=== PATIENT | female | born 1980 | race Caucasian/White ===

== ENCOUNTER 2016-09-08 06:35 | Day surgery (SDC) | payer BC, OTHER ==
[2016-09-08] MEDS ORDERED: Bupivacaine 0.25%/EPINEPHrine 1:200,000 10 ML SDV ONE (06:46)
[2016-09-08] MEDS ORDERED: Acetaminophen/HYDROcodone 325-5 MG Tab PO PRN (07:00)
[2016-09-08] MEDS ORDERED: Clindamycin Phosphate in D5W 600 MG in Premix Bag 1 BAG IV ONE ×2 (07:00)
[2016-09-08] MEDS ORDERED: Lactated Ringers 1,000 ML IV SCH (07:00)
[2016-09-08] MEDS ORDERED: Ondansetron 4 MG/2 ML SDV ONE (07:17)
[2016-09-08] MEDS ORDERED: Lidocaine 2% 5 ML SDV ONE (07:17)
[2016-09-08] MEDS ORDERED: Propofol 200 MG/20 ML SDV ONE (07:17)
[2016-09-08] MEDS ORDERED: Rocuronium 10 MG/ML 10 ML Syringe ONE (07:17)
[2016-09-08] MEDS ORDERED: Neostigmine Methylsulfate 1 MG/ML 5 ML Syringe ONE (07:17)
[2016-09-08] MEDS ORDERED: fentaNYL 250 MCG/5 ML SDV ONE (07:17)
[2016-09-08] MEDS ORDERED: Midazolam 1 MG/ML 2 ML SDV ONE (07:17)
--- NOTE | 2016-09-08 07:52 | PCM.PREANE ---
Preanesthetic Assessment - Anesthesia/Transfusion/Family Hx Anesthesia History: Prior Anesthesia Without Reaction Family History of Anesthesia Reaction: No Transfusion History: No Prior Transfusion(s) - Review of Systems General: No Symptoms Pulmonary: No Symptoms Cardiovascular: No Symptoms Gastrointestinal: No symptoms Neurological: No Symptoms Other: Reports: None - Physical Assessment NPO Status Date: 09/07/16 O2 Sat by Pulse Oximetry: 100 Respiratory Rate: 16 Vital Signs: Last Vital Signs Temp 36.4 C 09/08/16 06:43 Pulse 84 09/08/16 06:43 Resp 16 09/08/16 06:43 BP 145/87 H 09/08/16 06:43 Pulse Ox 100 09/08/16 06:43 Height: 1.6 m Weight: 91.626 kg ASA Class: 2 Mental Status: Alert & Oriented x3 Dentition: Reports: Normal Dentition ROM/Head Extension: Full Lungs: Clear to auscultation, Normal respiratory effort Cardiovascular: Regular Rate, Regular Rhythm - Lab Values: Laboratory Last Values Urine HCG, Qual NEGATIVE (NEGATIVE) 09/08/16 06:40 - Allergies Allergies/Adverse Reactions: Allergies Allergy/AdvReac Type Severity Reaction Status Date / Time Penicillins Allergy Cannot Verified 06/19/15 10:47 Remember - Anesthesia Plan Pre-Op Medication Ordered: None - Acknowledgements Anesthesia Type Planned: General Anesthesia Pt an Appropriate Candidate for the Planned Anesthesia: Yes Alternatives and Risks of Anesthesia Discussed w Pt/Guardian: Yes Pt/Guardian Understands and Agrees with Anesthesia Plan: Yes PreAnesthesia Questionnaire HEENT History: Reports: None Other HEENT History: currently on Z Pac for ear infection Cardiovascular History: Reports: None Respiratory History: Reports: None Gastrointestinal History: Reports: Other (See Below) Other Gastrointestinal History: occasional heartburn Genitourinary History: Reports: None MANAGER WATER History: Reports: Musculoskeletal History: Reports: None Neurological History: Reports: None Psychiatric History: Reports: Anxiety, Depression Endocrine/Metabolic History: Reports: Diabetes, Gestational, Obesity/BMI 30+ Hematologic History: Reports: None Immunologic History: Reports: None Oncologic (Cancer) History: Reports: None Dermatologic History: Reports: Other (See Below) Other Dermatologic History: pt states she "always gets infections in her incisions after surgery" - Past Surgical History Head Surgeries/Procedures: Reports: None GI Surgical History: Reports: Appendectomy Female Surgical History: Reports: Section, D&C Neurological Surgical History: Reports: None Musculoskeletal Surgical History: Reports: Other (See Below) Other Musculoskeletal Surgeries/Procedures:: tumor removed from left foot Oncologic Surgical History: Reports: Other (See Below) Other Oncologic Surgeries/Procedures: 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 - SUBSTANCE USE Smoking Status *Q: Former Smoker Tobacco Use Within Last Twelve Months: Cigarettes Second Hand Smoke Exposure: Yes Recreational Drug Use History: No - HOME MEDS Home Medications: Home Meds Sertraline [Zoloft] 50 mg PO DAILY 06/19/15 [History] - CURRENT (IN HOUSE) MEDS Current Meds: Current Medications Hydrocodone Bitart/Acetaminophen (Carrier 325-5 Mg) 1 tab PO Q4H PRN PRN Reason: Pain Bupivacaine HCl/Epinephrine Bitart (Marcaine 0.25%/Epinephrine 1:200,000) 20 ml INJECT ONETIME ONE Stop: 09/08/16 08:01 Lactated Ringer's (Ringers, Lactated) 1,000 mls @ 125 mls/hr IV ASDIRECTED [facility] Last Admin: 09/08/16 06:49 Dose: 125 mls/hr Discontinued Medications Bupivacaine HCl/Epinephrine Bitart (Marcaine 0.25%/Epinephrine 1:200,000) Confirm Administered Dose 20 ml .ROUTE .STK-MED ONE Stop: 09/08/16 06:47 Fentanyl (Sublimaze) Confirm Administered Dose 250 mcg .ROUTE .STK-MED ONE Stop: 09/08/16 07:18 Glycopyrrolate () Confirm Administered Dose 1 mg .ROUTE .STK-MED ONE Stop: 09/08/16 07:18 Clindamycin Phosphate 600 mg/ (Premix) 50 mls @ 150 mls/hr IV ONETIME ONE Stop: 09/08/16 07:19 Last Admin: 09/08/16 07:49 Dose: 150 mls/hr Lidocaine (Xylocaine-Mpf 2%) Confirm Administered Dose 5 ml .ROUTE .STK-MED ONE Stop: 09/08/16 07:18 Midazolam HCl (Versed 1 Mg/Ml) Confirm Administered Dose 2 mg .ROUTE .STK-MED ONE Stop: 09/08/16 07:18 Neostigmine Methylsulfate (Neostigmine) Confirm Administered Dose 5 mg .ROUTE .STK-MED ONE Stop: 09/08/16 07:18 Ondansetron HCl (Zofran) Confirm Administered Dose 4 mg .ROUTE .STK-MED ONE Stop: 09/08/16 07:18 Propofol (Diprivan 20 Ml) Confirm Administered Dose 200 mg .ROUTE .STK-MED ONE Stop: 09/08/16 07:18 Rocuronium [place] (Zemuron) Confirm Administered Dose 100 mg .ROUTE .STK-MED ONE Stop: 09/08/16 07:18
[2016-09-08] MEDS ORDERED: Bupivacaine 0.25%/EPINEPHrine 1:200,000 10 ML SDV INJECT ONE (08:00)
[2016-09-08] MEDS ORDERED: Phenylephrine/Normal Saline 100 MCG/ML 10 ML Syringe ONE (08:13)
[2016-09-08] MEDS ORDERED: fentaNYL 100 MCG/2 ML SDV IVPUSH PRN (08:20)
[2016-09-08 09:55] VITALS: BP 117/76
--- NOTE | 2016-09-08 09:57 | PCM.POSTAN ---
POST ANESTHESIA ASSESSMENT - MENTAL STATUS Mental Status: alert, oriented - RESPIRATORY Respiratory Status: respiratory rate WNL, airway patent, O2 saturation stable - CARDIOVASCULAR CV Status: pulse rate WNL, blood pressure stable - GASTROINTESTINAL GI Status: no symptoms - POST OP HYDRATION Hydration Status: adequate & stable
--- NOTE | 2016-09-08 09:58 | PCM48HPAN ---
Post Anesthesia Note - EVALUATION WITHIN 48HRS OF ANESTHETIC Vital Signs in Normal Range: Yes Patient Participated in Evaluation: Yes Respiratory Function Stable: Yes Airway Patent: Yes Cardiovascular Function Stable: Yes Hydration Status Stable: Yes Pain Control Satisfactory: Yes Nausea and Vomiting Control Satisfactory: Yes Mental Status Recovered: Yes
--- NOTE | 2016-09-09 16:53 | PCM.OPNOTE ---
- General Post-Op/Procedure Note Date of Surgery/Procedure: 09/08/16 Operative Procedure(s): excision of left back lipoma - submuscular 3 cm. Pre Op Diagnosis: let back lipoma Post-Op Diagnosis: Same Anesthesia Technique: General ET tube, Local Primary Surgeon: Radha You Bridal Stylist Sales Consultant: Tish Arguelles Complications: None Condition: Good Free Text/Narrative:: [id number]
--- NOTE | 2016-09-10 02:29 | OR ---
SURGEON: CANDE SPAULDING MD DATE OF PROCEDURE: 09/08/2016 PREOPERATIVE DIAGNOSIS: Left back lipoma. POSTOPERATIVE DIAGNOSIS: Left back lipoma, submuscular. PROCEDURES: Excision of left submuscular lipoma of the back 3 cm. WOOD TREATING INSPECTOR: CODEY Astudillo. INDICATIONS: Aline is a 36-year-old female with left back lipoma. Risks and benefits of excision were discussed with her and she was in agreement to proceed. Risks were including, but not limited to, bleeding, infection, damage to underlying or overlying structures, possible need for future interventions, and possible scarring. PROCEDURE IN DETAIL: After informed consent was obtained and placed on the chart, the patient was brought to the operating theater in a floppy lateral left position. Once adequately prepped and draped, attention was then paid to time-out to confirm side and site. The local anesthesia was then infiltrated into the area and the area had been prepped and draped in a normal fashion. A 15 blade was used to dissect through the skin taking care to avoid the tattoo on the skin. Dissection was carried through the subcutaneous tissues and the lipoma was reached. Dissection was carried circumferentially around this taking care to splint the superficial muscle layer under which the lipoma lay. Once adequately explored and freed, the lipoma was easily expressed from the area en block. This was sent for pathology. Meticulous hemostasis was obtained and the muscle layer was reapproximated. The deep dermal layer was then closed with deep 3-0 Monocryl for the fascia, 3-0 Monocryl for the dermis, and 3-0 Prolene for the skin. This was dressed with a Steri-Strip and a Tegaderm. The patient tolerated this well. All counts and needles were correct at the end the case. Meticulous hemostasis was obtained prior to closure. The wound was irrigated prior to closure. FOLLOWUP INSTRUCTIONS: The patient will see us in clinic in 10 days, sooner if there are any problems, questions, or concerns. She was given a prescription for pain control. СЕРГЕЙ / DANIA /[id number]
== END 2016-09-08 10:11 | disposition home or self-care (01) ==
LOC: MW.SDS 06:35
PROVIDERS: ATTEND Plastic Surgery
PROC: 0JB70ZZ Excision of Back Subcutaneous Tissue and Fascia, Open Approach (ICD-10-PCS; principal; 2016-09-08)
DX: D17.1 Benign lipomatous neoplasm of skin and subcutaneous tissue of trunk (principal); F41.9 Anxiety disorder, unspecified; F32.9 Major depressive disorder, single episode, unspecified; E66.9 Obesity, unspecified; Z88.0 Allergy status to penicillin; Z79.899 Other long term (current) drug therapy; Z90.49 Acquired absence of other specified parts of digestive tract; Z98.890 Other specified postprocedural states; Z86.32 Personal history of gestational diabetes; Z87.891 Personal history of nicotine dependence; Z68.35 Body mass index [BMI] 35.0-35.9, adult
CPT/HCPCS: 21932; 81025; 88304; J2250; J2405; J3010; J7120; 00300; J2704

== ENCOUNTER 2022-04-08 06:41 | Day surgery (SDC) | payer MEDICAID ==
[~2022-04-08 06:41] MED LIST: Lactated Ringers 1,000 ML IV SCH; Sodium Chloride 0.9% 10 ML Syringe FLUSH PRN; Sodium Chloride 0.9% 2.5 ML Syringe FLUSH PRN; Sodium Chloride 0.9% 20 ML SDV IV PRN; cefOXitin 2 GM in Premix Bag 1 BAG IV ONE
[2022-04-08] MEDS ORDERED: Scopolamine 1.5 MG Transdermal Patch ONE (07:02)
[2022-04-08] MEDS ORDERED: propofoL 100 ML ONE (07:05)
[2022-04-08] MEDS ORDERED: fentaNYL 250 MCG/5 ML SDV ONE (07:06)
[2022-04-08] MEDS: Lactated Ringers 1,000 ML IV SCH ×2 (07:07→20:58)
[2022-04-08] MEDS ORDERED: Ropivacaine 0.5% 5 MG/ML 30 ML SDV ONE (07:10)
[2022-04-08] MEDS ORDERED: Metoclopramide 10 MG/2 ML SDV IVPUSH PRN (07:10)
[2022-04-08] MEDS ORDERED: fentaNYL 50 MCG/ML SDV IVPUSH PRN (07:10)
[2022-04-08] MEDS ORDERED: Ondansetron 4 MG/2 ML SDV IVPUSH PRN ×2 (07:10→09:43)
[2022-04-08] MEDS ORDERED: Famotidine 20 MG/2 ML SDV ONE (07:10)
[2022-04-08] MEDS ORDERED: Naloxone 0.4 MG/ML SDV IVPUSH PRN (07:10)
[2022-04-08] MEDS ORDERED: HYDROmorphone 1 MG/ML Syringe IVPUSH PRN (07:10)
[2022-04-08] MEDS ORDERED: Albuterol 0.083% 2.5 MG/3 ML Neb Soln NEB PRN (07:10)
[2022-04-08] MEDS ORDERED: Dexamethasone 4 MG/ML 5 ML MDV ONE (07:11)
[2022-04-08] MEDS ORDERED: Sugammadex Sodium 200 MG/2 ML VIAL ONE ×2 (07:11→09:02)
[2022-04-08] MEDS ORDERED: Ketorolac 30 MG/ML SDV ONE (07:11)
[2022-04-08] MEDS ORDERED: Lidocaine 2% 5 ML SDV ONE (07:11)
[2022-04-08] MEDS ORDERED: Dexmedetomidine 200 MCG/2 ML SDV ONE (07:11)
[2022-04-08] MEDS ORDERED: fentaNYL 100 MCG/2 ML SDV ONE (07:13)
[2022-04-08] MEDS ORDERED: Water For Injection, Sterile 20 ML ONE ×2 (07:13→08:15)
[2022-04-08] MEDS ORDERED: Water For Injection, Sterile 40 ML ONE (07:15)
[2022-04-08] MEDS ORDERED: Magnesium Sulfate (4.06 MEQ/ML) 5 GM/10 ML SDV ONE (07:18)
[2022-04-08] MEDS ORDERED: Rocuronium Bromide 50 MG/5 ML Syringe ONE ×2 (07:24→08:45)
[2022-04-08] MEDS ORDERED: Fluorescein 5 ML Vial ONE (07:46)
[2022-04-08] MEDS ORDERED: cefOXitin 1 GM Vial ONE ×2 (07:47→14:05)
[2022-04-08] MEDS ORDERED: HYDROmorphone 2 MG/ML Syringe ONE (09:14)
[2022-04-08] MEDS ORDERED: Ondansetron 4 MG/2 ML SDV ONE (09:28)
[2022-04-08] MEDS ORDERED: Promethazine 25 MG/ML SDV IM PRN (09:43)
[2022-04-08] MEDS ORDERED: Ketorolac 30 MG/ML SDV IVPUSH ONE (09:43)
[2022-04-08] MEDS ORDERED: Morphine 4 MG/ML Syringe IVPUSH PRN (09:43)
[2022-04-08] MEDS ORDERED: Acetaminophen/oxyCODONE 325-5 MG Tab PO PRN (09:43)
[2022-04-08] MEDS: Ketorolac 30 MG/ML SDV IVPUSH PRN ×2 (15:51→22:06)
[2022-04-08] MEDS: Acetaminophen/oxyCODONE 325-5 MG Tab PO PRN ×2 (18:18→22:05)
[2022-04-09] MEDS: Morphine 2 MG/ML SYRINGE IVPUSH PRN ×2 (01:42→03:54)
[2022-04-09] MEDS: Ketorolac 30 MG/ML SDV IVPUSH PRN (03:54)
[2022-04-09] MEDS: Acetaminophen/oxyCODONE 325-5 MG Tab PO PRN ×3 (03:55→12:10)
[2022-04-09 06:59] LABS: CARBON DIOXIDE,CO2 22.8 mmol/L (21.0-32.0); POTASSIUM,K 3.9 mmol/L (3.5-5.1)
[2022-04-09 12:19] VITALS: BP 132/67; PULSE 77
== END 2022-04-09 14:00 | disposition home or self-care (01) ==
LOC: MW.SDS 06:41 → MW.OB 11:10 → MW.SDS 04-09 14:00
PROVIDERS: ATTEND Obstetrics & Gynecology
DX: D25.9 Leiomyoma of uterus, unspecified (principal); Z53.09 Procedure and treatment not carried out because of other contraindication
CPT/HCPCS: 36415; 51701; 80048; 85025; A9270; J0131; J0694; J1100; J1170; J1885; J2270; J2704; J2795; J3010; J3475; J3490; J7120; 84703; 85027; 86850; 86900; 86901; J2405; J7030

== ENCOUNTER 2022-04-10 12:38 | Inpatient (IN) | payer MEDICAID ==
[2022-04-10] MEDS ORDERED: Sodium Chloride 0.9% 1,000 ML IV ONE (12:50)
[2022-04-10] MEDS ORDERED: Morphine 4 MG/ML Syringe IVPUSH ONE (12:50)
[2022-04-10] MEDS ORDERED: Ondansetron 4 MG/2 ML SDV IVPUSH ONE (12:50)
[2022-04-10 13:39] LABS: CARBON DIOXIDE,CO2 20.9 mmol/L (21.0-32.0); POTASSIUM,K 4.7 mmol/L (3.5-5.1)
[2022-04-10] MEDS ORDERED: cefTRIAXone 1 GM in Sodium Chloride 0.9% 50 ML IV ONE (14:46)
[2022-04-10 15:15] LABS: CORONAVIRUS COVID-19 NAA NEGATIVE (NEGATIVE); INFLUENZA A NAA NEGATIVE (NEGATIVE); INFLUENZA B NAA NEGATIVE (NEGATIVE)
[2022-04-10] MEDS: Sodium Chloride 0.9% 1,000 ML IV SCH (15:50)
[2022-04-10] MEDS ORDERED: Acetaminophen/oxyCODONE 325-5 MG Tab PO PRN (18:25)
[2022-04-10] MEDS: Acetaminophen/oxyCODONE 325-5 MG Tab PO PRN (18:39)
[2022-04-11] MEDS: Acetaminophen/oxyCODONE 325-5 MG Tab PO PRN (00:01)
[2022-04-11] MEDS: Sodium Chloride 0.9% 1,000 ML IV SCH ×2 (00:03→08:20)
[2022-04-11 06:18] LABS: CARBON DIOXIDE,CO2 23.1 mmol/L (21.0-32.0); POTASSIUM,K 4.1 mmol/L (3.5-5.1)
[2022-04-11 13:46] VITALS: BP 133/65; PULSE 85
[2022-04-11] MEDS ORDERED: cefTRIAXone 1 GM in Sodium Chloride 0.9% 50 ML IV SCH (15:00)
== END 2022-04-11 12:30 | disposition home or self-care (01) | DRG 690 ==
LOC: MW.ED 12:38 → MW.MS 16:15
PROVIDERS: ADMIT Obstetrics & Gynecology Obstetrics; ATTEND Obstetrics & Gynecology Obstetrics
DX: N39.0 Urinary tract infection, site not specified (principal); F41.0 Panic disorder [episodic paroxysmal anxiety]; F32.A Depression, unspecified; Z20.822 Contact with and (suspected) exposure to COVID-19; F17.200 Nicotine dependence, unspecified, uncomplicated; E86.0 Dehydration; Z90.710 Acquired absence of both cervix and uterus; Z88.0 Allergy status to penicillin; Z90.49 Acquired absence of other specified parts of digestive tract; Z79.899 Other long term (current) drug therapy; R33.9 Retention of urine, unspecified
CPT/HCPCS: 0240U; 36415; 51702; 74176; 74176-26; 80048; 80053; 81001; 83690; 85025; 87086; 96361; 96365; 96375; 99285; 99285-25; A9270-GY; J0696; J2270; J2405; J7030; J7050